=== PATIENT | male | born 1990 | race Caucasian/White ===

== ENCOUNTER 2016-12-11 12:41 | Emergency (ER) | payer OTHER ==
[2016-12-11 12:53] VITALS: BP 132/82; PULSE 90; TEMP 99.9; BMI 32.1
[2016-12-11] MEDS ORDERED: IBUPROFEN 600 MG TABLET (FP) PO ONE ×2 (14:54→14:57)
--- NOTE | 2016-12-11 15:22 | PDOC ---
History of Present Illness - General Chief Complaint: Sore Throat Stated Complaint: THROAT PAIN Time Seen by Provider: 12/11/16 13:36 History Source: Patient Exam Limitations: No Limitations - History of Present Illness Initial Comments: 12/11/16 15:13 26 yr male states he has a sore thraot and that he thinks he may have strep. Pt states his younger brother at home has strep. Pt has no fever, no chills, no abd pain or shortness of breath. 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 Timing/Duration: 1-3 hours Severity: mild Past History - Past Medical History Allergies/Adverse Reactions: Allergies Allergy/AdvReac Type Severity Reaction Status Date / Time No Known Allergies Allergy Verified 12/11/16 12:53 Home Medications: Ambulatory Orders NK [No Known Home Medication] 12/11/16 Other medical history: NONE - Family Disease History Comment:: 12/11/16 15:14 none - Psycho/Social/Smoking Cessation Hx Anxiety: No Suicidal Ideation: No Smoking History: Never smoked Number of Cigarettes Smoked Daily: 1 Hx Alcohol Use: Yes (SOCIAL) Drug/Substance Use Hx: No Substance Use Type: Marijuana Review of Systems - Review of Systems Able to Perform ROS?: Yes Is the patient limited [place] proficient: No Constitutional: No: Symptoms Reported HEENTM: Yes: See HPI *Physical Exam - Vital Signs Last Vital Signs Temp Pulse Resp BP Pulse Ox 99.9 F H 90 20 132/82 98 12/11/16 12:51 12/11/16 12:51 12/11/16 12:51 12/11/16 12:51 12/11/16 12:51 - Physical Exam General Appearance: Yes: Nourished, Appropriately Dressed HEENT: positive: EOMI, NAYAN, TMs Normal, Tonsillar Erythema. negative: Pharyngeal Erythema, Tonsillar Exudate Neck: positive: Supple Respiratory/Chest: positive: Lungs Clear, Normal Breath Sounds Cardiovascular: positive: Regular Rhythm, Regular Rate Gastrointestinal/Abdominal: positive: Normal Bowel Sounds, Soft Musculoskeletal: positive: Normal Inspection Extremity: positive: Normal Capillary Refill, Normal Inspection, Normal Range of Motion Integumentary: positive: Normal Color, Dry, Warm Neurologic: positive: assistant in nursing II-XII NML intact, Fully Oriented, Alert, Normal Mood/ Affect, Normal Response, Motor Strength 5/5 ED Treatment Course - Medications Given in the ED: ED Medications Discontinued Medications Generic Name Dose Route Start Last Admin Trade Name Vlad PRN Reason Stop Dose Admin Ibuprofen 600 mg 12/11/16 14:54 12/11/16 15:01 Motrin - PO 12/11/16 14:55 600 mg ONCE ONE Administration Medical Decision Making - Medical Decision Making 12/11/16 15:15 cc: sore throat non toxic appearing no acute distress, will swab for strep no acute distress vitals stable 12/11/16 15:22 rapid strep is negative will dc home supportive care and follow up as needed *DC/Admit/Observation/Transfer Diagnosis at time of Disposition: Pharyngitis Qualifiers: Pharyngitis/tonsillitis etiology: unspecified etiology Qualified Code(s): J02.9 - Acute pharyngitis, unspecified - Discharge Dispostion Disposition: HOME Condition at time of disposition: Good - Patient Instructions Additional Instructions: gargle with warm salt water 4-5 times a day take motrin as needed for pain (over the counter advil, motrin or ibuprofen) follow up with your doctor if symptoms worsen or persist
== END 2016-12-11 15:28 | disposition home or self-care (01) ==
LOC: JERFT 12:41 → JER 12:41 → JERFT 15:28
DX: J02.9 Acute pharyngitis, unspecified (principal); Z72.0 Tobacco use
CPT/HCPCS: 87070; 87430; 99281-25

== ENCOUNTER 2018-02-20 19:28 | Emergency (ER) | payer OTHER ==
[2018-02-20 20:00] VITALS: BP 143/78; PULSE 84; TEMP 98.3; BMI 30.2
--- NOTE | 2018-02-20 20:01 | PDOC ---
Rapid Medical Evaluation Time Seen by Provider: 02/20/18 19:55 Medical Evaluation: Allergies Allergy/AdvReac Type Severity Reaction Status Date / Time No Known Allergies Allergy Verified 12/11/16 12:53 02/20/18 19:56 The patient presents with a chief complaint of: Sore throat for 1 day. Friend diagnosed with mono. Reports subjective fevers at home. Also requesting STD testing I have performed a brief in-person evaluation of this patient; Pertinent physical exam findings: ambulatory, in no respiratory distress I have ordered the following: Rapid strep, mono The patient will proceed to the ED for further evaluation. Discharge Disposition - Referrals Referrals: Karel Cabrera MD [Primary Care Provider] - - Patient Instructions - Post Discharge Activity
[2018-02-20] MEDS ORDERED: KETOROLAC TROMETHAMINE 60 MG/2 ML VIAL IM ONE (20:41)
[2018-02-20] MEDS ORDERED: DEXAMETHASONE LIQUID 0.5 MG/5 ML 240 ML BULK BOTTLE PO ONE (20:41)
--- NOTE | 2018-02-20 21:32 | PDOC ---
History of Present Illness - General Chief Complaint: Sore Throat Stated Complaint: SORE THROAT Time Seen by Provider: 02/20/18 19:55 History Source: Patient Exam Limitations: No Limitations - History of Present Illness Initial Comments: 02/20/18 21:26 Patient is a 28-year-old male, denies any significant medical history currently on no medication presents with sore throat, body aches and chills with dysphagia for 3 days. Patient denies any chest pain or shortness of breath. Past Medical History: [Denies]. Allergies: No known allergies Medications: [None] Family History: Non-contributory Social History: Denies smoking, alcohol use, or IVDU Review of Systems GENERAL/CONSTITUTIONAL: [Fever and chills. No weakness. No weight change.] HEAD, EYES, EARS, NOSE AND THROAT: [No change in vision. No ear pain or discharge. Sore throat and dysphagia. ] CARDIOVASCULAR: [No chest pain or shortness of breath.] RESPIRATORY: [No cough, wheezing, or hemoptysis.] GASTROINTESTINAL: [No nausea, vomiting, diarrhea or constipation. No rectal bleeding.] GENITOURINARY: [No dysuria, frequency, or change in urination.] MUSCULOSKELETAL: [No joint or muscle swelling or pain. No neck or back pain.] SKIN AND BREASTS: [No rash or easy bruising.] NEUROLOGIC: [No headache, vertigo, loss of consciousness, or loss of sensation.] PSYCHIATRIC: [No depression or anxiety.] ENDOCRINE: [No increased thirst. No abnormal weight change.] HEMATOLOGIC/LYMPHATIC: [No anemia, easy bleeding, or history of blood clots.] ALLERGIC/IMMUNOLOGIC: [No hives or skin allergy. No latex allergy.] Physical Exam: GENERAL: [The patient is awake, alert, and fully oriented, in no acute distress. ] HEAD: [Normal with no signs of trauma.] EYES: [Pupils equal, round and reactive to light, extraocular movements intact, sclera anicteric, conjunctiva clear.] ENT: [Ears normal, nares patent, erythematous with no exudates, moist mucous membranes. No uvula deviation] NECK: [Normal range of motion, supple without right precervical lymphadenopathy , JVD, or masses.] LUNGS: [Breath sounds equal, clear to auscultation bilaterally. No wheezes, and no crackles.] HEART: [Regular rate and rhythm, normal S1 and S2 without murmur, rub or gallop. ] ABDOMEN: [Soft, nontender, normoactive bowel sounds. No guarding, no rebound. No masses. No bruising or abrasions] RECTAL : [Guaiac negative, normal rectal tone.] MUSCULOSKELETAL: [Normal range of motion, no edema. No clubbing or cyanosis. No cords, erythema, or tenderness. No CVA Tenderness with fist.] NEUROLOGICAL: [Cranial nerves II through XII grossly intact. Normal speech, normal gait.] PSYCH: [Normal mood, normal affect.] SKIN: [Warm, Dry, normal turgor, no rashes or lesions noted.] Past History - Past Medical History Allergies/Adverse Reactions: Allergies Allergy/AdvReac Type Severity Reaction Status Date / Time No Known Allergies Allergy Verified 02/20/18 20:00 Home Medications: Ambulatory Orders Azithromycin [Zithromax 250mg Tablets -] 250 mg PO UTDICT #6 tab 02/20/18 Ibuprofen [Motrin -] 600 mg PO QID #28 tablet 02/20/18 - Suicide/Smoking/Psychosocial Hx Smoking History: Never smoked Have you smoked in the past 12 months: No Number of Cigarettes Smoked Daily: 1 Information on smoking cessation initiated: No Hx Alcohol Use: No Drug/Substance Use Hx: No Substance Use Type: Marijuana *Physical Exam - Vital Signs Last Vital Signs Temp Pulse Resp BP Pulse Ox 98.3 F 84 18 143/78 99 02/20/18 19:57 02/20/18 19:57 02/20/18 19:57 02/20/18 19:57 02/20/18 19:57 ED Treatment Course - ADDITIONAL ORDERS Additional order review: 02/20/18 20:04 Group A Strep Rapid Antigen - Final Throat - Medications Given in the ED: ED Medications Discontinued Medications Generic Name Dose Route Start Last Admin Trade Name Freq PRN Reason Stop Dose Admin Dexamethasone 10 mg 02/20/18 20:41 02/20/18 20:50 Decadron Liquid - PO 02/20/18 20:42 10 mg ONCE ONE Administration Ketorolac Tromethamine 60 mg 02/20/18 20:41 02/20/18 20:50 Toradol Injection - IM 02/20/18 20:42 60 mg ONCE ONE Administration Medical Decision Making - Medical Decision Making 02/20/18 21:28 A/P: Patient with significant dysphasia, fever and chills rapid strep is negative however based upon patient's presentation will DC on azithromycin, Decadron and Toradol given in ER with good result. Patient requested HIV testing sent will give number to call back for rest of STD testing that was requested. HIV is negative, patient made aware. I discussed the physical exam findings, ancillary test results and final diagnoses with the patient. I answered all of the patient's questions. The patient was satisfied with the care received and felt comfortable with the discharge plan and treatment plan. The patient will call to arrange follow-up and will return to the Emergency Department with any new, persistent or worsening symptoms. *DC/Admit/Observation/Transfer Diagnosis at time of Disposition: Pharyngitis Qualifiers: Pharyngitis/tonsillitis etiology: unspecified etiology Qualified Code(s): J02.9 - Acute pharyngitis, unspecified - Discharge Dispostion Disposition: HOME Condition at time of disposition: Stable Admit: No - Prescriptions Prescriptions: Azithromycin [Zithromax 250mg Tablets -] 250 mg PO UTDICT #6 tab Ibuprofen [Motrin -] 600 mg PO QID #28 tablet - Referrals Referrals: Karel Cabrera MD [Primary Care Provider] - - Patient Instructions Additional Instructions: 1. Increase fluid. 2. Pedialyte or Gatorade. 3. Please change toothbrush within 3 days of starting antibiotics. 4. Warm saltwater gargles. 5. Please follow up with PMD in 3 days if symptoms not resolving. 6. Please return to the ER unable to drink or eat, increased fever or other concerns Please call [phone] in one week for results of STD testing - Post Discharge Activity Forms/Work/School Notes: Back to Work
== END 2018-02-20 21:48 | disposition home or self-care (01) ==
LOC: JERFT 19:28
PROC: 3E0233Z Introduction of Anti-inflammatory into Muscle, Percutaneous Approach (ICD-10-PCS; principal; 2018-02-20)
DX: J02.9 Acute pharyngitis, unspecified (principal); Z11.3 Encounter for screening for infections with a predominantly sexual mode of transmission
CPT/HCPCS: 36415; 86308; 86593; 87070; 87389; 87430; 87491; 87591; 96372; 99281-25